=== PATIENT | female | born 1980 | race Two or more races ===

== ENCOUNTER → 2018-06-20 | Outpatient (CLI) | payer OTHER ==
[~2018-06-20] MED LIST: PNV91TAB3 PO
[2018-06-20 09:47] LABS: BASOPHILS # (AUTO) 0.04 x10^3/uL (0-0.1); BASOPHILS % (AUTO) 1 % (0-1); EOSINOPHILS # (AUTO) 0.17 x10^3/uL (0-0.4); EOSINOPHILS % (AUTO) 2 % (1-7); LYMPHOCYTES # (AUTO) 2.27 x10^3/uL (1-3.4); LYMPHOCYTES % (AUTO) 31 % (22-44); MD NO; MEAN CORPUSCULAR HEMOGLOBIN 30.4 pg (27.0-34.8); MEAN CORPUSCULAR HGB CONC 33.7 g/dL (32.4-35.8); MEAN CORPUSCULAR VOLUME 90.2 fL (80-100); MEAN PLATELET VOLUME 8.6 fL (7.4-10.4); MONOCYTES % (AUTO) 4 % (2-9); NEUTROPHILS # (AUTO) 4.62 x10^3/uL (1.8-6.8); NEUTROPHILS % (AUTO) 62 % (42-75); PLATELET COUNT 317 x10^3/uL (130-400); RED BLOOD COUNT 4.59 x10^6/uL (3.82-5.3); RED CELL DISTRIBUTION WIDTH 13.5 % (9.6-15.2)
[2018-06-20 10:05] LABS: ALANINE AMINOTRANSFERASE 19 U/L (12-78); ALBUMIN 3.9 g/dL (3.4-5.0); ANION GAP 8 mmol/L (5-15); CALCIUM 8.3 mg/dL (8.5-10.1); CHLORIDE 108 mmol/L (98-107); CHOLESTEROL, TOTAL 158 mg/dL (140-239); CREATININE 0.61 mg/dL (0.55-1.02)
[2018-06-20 10:07] LABS: ALKALINE PHOSPHATASE 84 U/L (45-117); BILIRUBIN,TOTAL 0.9 mg/dL (0.2-1.0); HDL CHOL % 25 % (28-40); HDL CHOLESTEROL (DIRECT) 40 mg/dL (40-60); LDL CHOLESTEROL,CALCULATED 98 mg/dL (54-169); LDL/HDL RATIO 2.5 (0.5-3.0); TOTAL PROTEIN 7.8 g/dL (6.4-8.2); TRIGLYCERIDES 101 mg/dL (50-200); VLDL CHOLESTEROL 20 mg/dL (0-25)
[2018-06-20 10:46] LABS: HEMOGLOBIN A1C 5.3 % (4.2-6.3)
== END | disposition home or self-care (01) ==
LOC: LAB 09:32
PROVIDERS: ATTEND Obstetrics & Gynecology Maternal & Fetal Medicine
DX: Z13.220 Encounter for screening for lipoid disorders (principal); Z13.89 Encounter for screening for other disorder; Z13.0 Encounter for screening for diseases of the blood and blood-forming organs and certain disorders involving the immune mechanism; Z13.9 Encounter for screening, unspecified; Z13.1 Encounter for screening for diabetes mellitus
CPT/HCPCS: 36415; 80053; 80061; 83036; 85025

== ENCOUNTER 2019-04-17 10:18 | Inpatient (IN) | payer OTHER ==
[~2019-04-17] VITALS: Ht 165.1 cm; Wt 84.0 kg
--- NOTE | 2019-04-17 10:41 | NUR ---
P TTO ED FOR RIGHT SIDED ABD PAIN X3-4 DAYS. PT ALSO STATES CONSTIPATION. LBM YESTEDAY MONING, BUT PT STATES "IT WAS A STRUGGLE." PT CONNECTED TO MONITORS. VSS ON RA. NO NEEDS EXPRESSED. AWAITING EDMD ASSESSMENT.
--- NOTE | 2019-04-17 11:02 | NUR ---
pt up self to rr for ua sample. after pt back in room, this rn noticed urine is [id number]. pt then began to elaborate on right-sided flank pain x2 days. physical assessment updated. vss. no needs expressed.
--- NOTE | 2019-04-17 11:09 | NUR ---
Dr. Bynum to bs for assessment. orders received.
[2019-04-17 11:22] LABS: BASOPHILS # (AUTO) 0.04 x10^3/uL (0-0.1); BASOPHILS % (AUTO) 0 % (0-1); EOSINOPHILS # (AUTO) 0.01 x10^3/uL (0-0.4); EOSINOPHILS % (AUTO) 0 % (1-7); LYMPHOCYTES # (AUTO) 1.14 x10^3/uL (1-3.4); LYMPHOCYTES % (AUTO) 7 % (22-44); MD NO; MEAN CORPUSCULAR HEMOGLOBIN 30.4 pg (27.0-34.8); MEAN CORPUSCULAR HGB CONC 33.5 g/dL (32.4-35.8); MEAN CORPUSCULAR VOLUME 90.7 fL (80-100); MEAN PLATELET VOLUME 8.4 fL (7.4-10.4); MONOCYTES # (AUTO) 0.55 x10^3/uL (0.2-0.8); MONOCYTES % (AUTO) 4 % (2-9); NEUTROPHILS # (AUTO) 13.88 x10^3/uL (1.8-6.8); NEUTROPHILS % (AUTO) 89 % (42-75); PLATELET COUNT 436 x10^3/uL (130-400); RED BLOOD COUNT 3.93 x10^6/uL (3.82-5.3)
--- NOTE | 2019-04-17 11:31 | NUR ---
PT RESTING IN ROOM. WARM BLANKET PROVIDED FOR COMFORT. VSS. AWAITING RESULTS.
[2019-04-17 11:33] LABS: ALANINE AMINOTRANSFERASE 79 U/L (12-78); ANION GAP 10 mmol/L (5-15); CALCIUM 8.5 mg/dL (8.5-10.1); CHLORIDE 101 mmol/L (98-107); CREATININE 0.79 mg/dL (0.55-1.02)
[2019-04-17 11:35] LABS: MICROSCOPIC INDICATED
[2019-04-17 11:38] LABS: ALKALINE PHOSPHATASE 370 U/L (45-117); BILIRUBIN,TOTAL 2.9 mg/dL (0.2-1.0); TOTAL PROTEIN 8.3 g/dL (6.4-8.2)
[2019-04-17 11:41] LABS: CULTURE INDICATED? YES
--- NOTE | 2019-04-17 12:01 | NUR ---
PT RESTING IN ROOM. VSS. AWAITING CT.
--- NOTE | 2019-04-17 12:46 | NUR ---
pt back from ct at this time. pt tolerated well. vss. awaiting results.
--- NOTE | 2019-04-17 12:56 | NUR ---
pt resting in room wtih eyes closed. vss. no needs expressed. awaiting ct results.
[2019-04-17] MEDS ORDERED: SODIUM CHLORIDE 0.9% 1,000ML IVBOLUS ONE (13:30)
[2019-04-17] MEDS ORDERED: CIPROFLOXACIN/PMX 400MG/200ML 100 ML IVPB ONE (13:30)
[2019-04-17] MEDS ORDERED: SODIUM CHLORIDE FLUSH 10ML SYR IVF ONE (13:30)
[2019-04-17] MEDS ORDERED: METRONIDAZOLE PMX 500MG/100ML 100 ML IVPB ONE (13:30)
[2019-04-17] MEDS ORDERED: METRONIDAZOLE PMX 500MG/100ML 100 ML ONE (13:36)
[2019-04-17] MEDS ORDERED: CIPROFLOXACIN/PMX 400MG/200ML 200 ML ONE (13:37)
[2019-04-17] MEDS ORDERED: ONDANSETRON 2MG/ML, 2ML IVPush PRN ×2 (14:00→20:00)
[2019-04-17] MEDS ORDERED: SODIUM CHLORIDE 0.9% 1,000 ML IV ONE (14:00)
[2019-04-17] MEDS ORDERED: MORPHINE SULFATE 4 MG/ML, 1ML IVPush PRN ×2 (14:00→20:00)
[2019-04-17] MEDS ORDERED: SODIUM CHLORIDE FLUSH 10ML SYR IVF PRN (14:00)
[2019-04-17 15:47] VITALS: BP 95/60
[2019-04-17] MEDS ORDERED: BUPIVACAINE/PF 0.5% ONE (17:11)
[2019-04-17] MEDS ORDERED: MIDAZOLAM 1 MG/ML, 2ML ONE (17:16)
[2019-04-17] MEDS ORDERED: FENTANYL PF 100 MCG/2ML ONE ×4 (17:16→19:15)
[2019-04-17] MEDS ORDERED: ROCURONIUM 10 MG/ML,10ML ONE (17:38)
[2019-04-17] MEDS ORDERED: LABETALOL 5MG/ML, 20ML IV PRN ×2 (18:00)
[2019-04-17] MEDS ORDERED: HYDROmorphone 2 MG/ML, 1ML IVPush PRN ×2 (18:00)
[2019-04-17] MEDS ORDERED: hydrALAzine 20 MG/ML, 1ML IV PRN ×2 (18:00)
[2019-04-17] MEDS ORDERED: PROMETHAZINE 25 MG/ML, 1ML IV PRN ×2 (18:00)
[2019-04-17] MEDS ORDERED: FENTANYL PF 100 MCG/2ML IV PRN (18:00)
[2019-04-17] MEDS ORDERED: ALBUTEROL SULFATE 2.5 MG/3 ML NPPB PRN ×2 (18:00)
[2019-04-17] MEDS ORDERED: MEPERIDINE/PF 25MG/0.5ML IVPush PRN ×2 (18:00)
[2019-04-17] MEDS ORDERED: KETOROLAC 30 MG/1 ML IV PRN ×2 (18:00)
[2019-04-17] MEDS ORDERED: DIAZEPAM 5 MG/ML, 2ML IVPush PRN ×2 (18:00)
[2019-04-17] MEDS ORDERED: ACETAMINOPHEN 325 MG TABLET PO PRN ×2 (18:00)
[2019-04-17] MEDS ORDERED: OXYcodone 5 MG/5 ML ORAL.SOL UDC PO PRN ×2 (18:00)
[2019-04-17] MEDS ORDERED: PROPOFOL 10 MG/ML, 20ML ONE (18:37)
[2019-04-17] MEDS ORDERED: CEFAZOLIN 1,000 MG ONE (18:37)
[2019-04-17] MEDS ORDERED: SUCCINYLCHOLINE 20 MG/ML, 10ML ONE (18:37)
[2019-04-17] MEDS ORDERED: ONDANSETRON 2MG/ML, 2ML ONE (18:37)
[2019-04-17] MEDS ORDERED: DEXAMETHASONE 4 MG/ML, 1ML ONE (18:37)
[2019-04-17] MEDS ORDERED: NEOSTIGMINE 1 MG/ML, 10ML ONE (18:37)
[2019-04-17] MEDS ORDERED: OXYcodone 5 MG/5 ML ORAL.SOL UDC ONE (19:15)
[2019-04-17] MEDS ORDERED: D5%-0.45NACL+KCL 20MEQ 1,000 ML IV SCH (19:31)
[2019-04-17] MEDS: FENTANYL PF 100 MCG/2ML IV PRN ×2 (19:37→19:54)
[2019-04-17] MEDS ORDERED: OXYcodone IR 5MG TABLET PO PRN (20:00)
[2019-04-17] MEDS ORDERED: DEXAMETHASONE 4 MG/ML, 1ML IVPush PRN (20:00)
[2019-04-17] MEDS ORDERED: LORazepam 2 MG/ML, 1ML IVPush PRN (20:00)
[2019-04-17] MEDS ORDERED: DIPHENHYDRAMINE 25 MG CAPSULE PO PRN (20:00)
[2019-04-17] MEDS ORDERED: HALOPERIDOL 5 MG/ML IVPush PRN (20:00)
[2019-04-17] MEDS ORDERED: DIPHENHYDRAMINE 50 MG/ML, 1ML IVPush PRN (20:00)
[2019-04-17] MEDS ORDERED: CALCIUM CARBONATE 500 MG TAB.CHEW PO PRN (20:00)
[2019-04-17] MEDS ORDERED: SCOPOLAMINE PATCH, 1.5MG PATCH.TD72 TD PRN (20:00)
[2019-04-17] MEDS ORDERED: CEFTRIAXONE 2 GM in SODIUM CHLORIDE 0.9% 50 ML IVPB SCH (20:00)
[2019-04-17] MEDS ORDERED: TRAZODONE 50MG TABLET PO PRN (20:00)
[2019-04-17] MEDS: ACETAMINOPHEN 500 MG TABLET PO SCH (21:12)
[2019-04-17] MEDS: KETOROLAC 30 MG/1 ML IVPush SCH (21:13)
[2019-04-17] MEDS: METRONIDAZOLE PMX 500MG/100ML 100 ML IVPB SCH (22:39)
[2019-04-17 23:27] VITALS: BP 92/56
[2019-04-18] MEDS: ACETAMINOPHEN 500 MG TABLET PO SCH ×4 (02:47→20:27)
[2019-04-18] MEDS: KETOROLAC 30 MG/1 ML IVPush SCH ×4 (02:47→20:27)
[2019-04-18 03:26] VITALS: BP 98/57
[2019-04-18 03:44] LABS: BASOPHILS # (AUTO) 0.01 x10^3/uL (0-0.1); BASOPHILS % (AUTO) 0 % (0-1); EOSINOPHILS % (AUTO) 0 % (1-7); LYMPHOCYTES # (AUTO) 0.41 x10^3/uL (1-3.4); LYMPHOCYTES % (AUTO) 3 % (22-44); MD NO; MEAN CORPUSCULAR HEMOGLOBIN 30.4 pg (27.0-34.8); MEAN CORPUSCULAR HGB CONC 33.1 g/dL (32.4-35.8); MEAN PLATELET VOLUME 8.4 fL (7.4-10.4); MONOCYTES # (AUTO) 0.28 x10^3/uL (0.2-0.8); MONOCYTES % (AUTO) 2 % (2-9); NEUTROPHILS # (AUTO) 11.55 x10^3/uL (1.8-6.8); NEUTROPHILS % (AUTO) 94 % (42-75); PLATELET COUNT 371 x10^3/uL (130-400); RED BLOOD COUNT 3.45 x10^6/uL (3.82-5.3); RED CELL DISTRIBUTION WIDTH 14.3 % (9.6-15.2)
[2019-04-18 03:50] LABS: ALBUMIN 2.2 g/dL (3.4-5.0); ANION GAP 8 mmol/L (5-15); CALCIUM 7.9 mg/dL (8.5-10.1); CHLORIDE 104 mmol/L (98-107); CREATININE 0.66 mg/dL (0.55-1.02)
[2019-04-18] MEDS: METRONIDAZOLE PMX 500MG/100ML 100 ML IVPB SCH ×3 (06:40→22:38)
[2019-04-18 08:02] VITALS: BP 88/53
[2019-04-18] MEDS: ENOXAPARIN 40 MG/0.4 ML SQ SCH (12:33)
[2019-04-18] MEDS ORDERED: PANTOPROZOLE 40MG TABLET PO SCH (13:00)
[2019-04-18 14:00] VITALS: BP 96/56
[2019-04-18] MEDS: CEFTRIAXONE PMX 2GM/50ML 50 ML IVPB SCH (17:54)
[2019-04-18 18:42] VITALS: BP 90/63
[2019-04-19 01:48] VITALS: BP 93/60
[2019-04-19] MEDS: ACETAMINOPHEN 500 MG TABLET PO SCH ×4 (02:33→20:15)
[2019-04-19] MEDS: KETOROLAC 30 MG/1 ML IVPush SCH ×4 (02:34→20:17)
[2019-04-19 03:48] LABS: ALBUMIN 2.1 g/dL (3.4-5.0); ANION GAP 8 mmol/L (5-15); CALCIUM 8.1 mg/dL (8.5-10.1); CHLORIDE 103 mmol/L (98-107); CREATININE 0.64 mg/dL (0.55-1.02)
[2019-04-19 03:56] LABS: BASOPHILS # (AUTO) 0.02 x10^3/uL (0-0.1); BASOPHILS % (AUTO) 0 % (0-1); EOSINOPHILS # (AUTO) 0.05 x10^3/uL (0-0.4); EOSINOPHILS % (AUTO) 0 % (1-7); LYMPHOCYTES # (AUTO) 0.81 x10^3/uL (1-3.4); LYMPHOCYTES % (AUTO) 5 % (22-44); MD MORPH REVIEW ONLY; MEAN CORPUSCULAR HEMOGLOBIN 30.3 pg (27.0-34.8); MEAN CORPUSCULAR VOLUME 91.9 fL (80-100); MEAN PLATELET VOLUME 8.5 fL (7.4-10.4); MONOCYTES # (AUTO) 0.06 x10^3/uL (0.2-0.8); MONOCYTES % (AUTO) 0 % (2-9); NEUTROPHILS # (AUTO) 14.26 x10^3/uL (1.8-6.8); NEUTROPHILS % (AUTO) 94 % (42-75); PLATELET COUNT 349 x10^3/uL (130-400); RED BLOOD COUNT 3.24 x10^6/uL (3.82-5.3); RED CELL DISTRIBUTION WIDTH 14.9 % (9.6-15.2)
[2019-04-19 03:57] LABS: <PLATELET ESTIMATE> ADEQUATE; <PLT MORPHOLOGY> NORMAL PLT MORPH; <RBC MORPHOLOGY> NORMAL; TOXIC GRAN 1+
[2019-04-19] MEDS: METRONIDAZOLE PMX 500MG/100ML 100 ML IVPB SCH ×3 (06:25→22:36)
[2019-04-19 06:47] VITALS: BP 86/51
[2019-04-19 08:28] VITALS: BP 97/61
[2019-04-19] MEDS: ENOXAPARIN 40 MG/0.4 ML SQ SCH (12:05)
[2019-04-19 13:18] VITALS: BP 93/55
[2019-04-19] MEDS: CEFTRIAXONE PMX 2GM/50ML 50 ML IVPB SCH (17:27)
[2019-04-19 19:35] VITALS: BP 106/77
[2019-04-20] MEDS: KETOROLAC 30 MG/1 ML IVPush SCH ×3 (02:28→14:30)
[2019-04-20] MEDS: ACETAMINOPHEN 500 MG TABLET PO SCH ×5 (02:28→20:29)
[2019-04-20 02:57] VITALS: BP 101/68
[2019-04-20 04:10] LABS: BASOPHILS # (AUTO) 0.18 x10^3/uL (0-0.1); BASOPHILS % (AUTO) 1 % (0-1); EOSINOPHILS # (AUTO) 0.07 x10^3/uL (0-0.4); EOSINOPHILS % (AUTO) 0 % (1-7); LYMPHOCYTES # (AUTO) 0.91 x10^3/uL (1-3.4); LYMPHOCYTES % (AUTO) 5 % (22-44); MD NO; MEAN CORPUSCULAR HEMOGLOBIN 30.4 pg (27.0-34.8); MEAN CORPUSCULAR HGB CONC 32.9 g/dL (32.4-35.8); MEAN CORPUSCULAR VOLUME 92.3 fL (80-100); MEAN PLATELET VOLUME 8.3 fL (7.4-10.4); MONOCYTES # (AUTO) 0.17 x10^3/uL (0.2-0.8); MONOCYTES % (AUTO) 1 % (2-9); NEUTROPHILS # (AUTO) 15.62 x10^3/uL (1.8-6.8); NEUTROPHILS % (AUTO) 92 % (42-75); PLATELET COUNT 415 x10^3/uL (130-400); RED BLOOD COUNT 3.09 x10^6/uL (3.82-5.3); RED CELL DISTRIBUTION WIDTH 14.8 % (9.6-15.2)
[2019-04-20 04:14] LABS: ALBUMIN 2.1 g/dL (3.4-5.0); ANION GAP 9 mmol/L (5-15); CHLORIDE 104 mmol/L (98-107); CREATININE 0.53 mg/dL (0.55-1.02)
[2019-04-20] MEDS: METRONIDAZOLE PMX 500MG/100ML 100 ML IVPB SCH ×3 (06:25→23:16)
[2019-04-20 07:08] VITALS: BP 96/57
[2019-04-20] MEDS: ENOXAPARIN 40 MG/0.4 ML SQ SCH (11:59)
[2019-04-20 12:31] VITALS: BP 104/66
[2019-04-20] MEDS: CEFTRIAXONE PMX 2GM/50ML 50 ML IVPB SCH (16:50)
[2019-04-20 19:52] VITALS: BP 98/61
[2019-04-21 02:45] VITALS: BP 102/64
[2019-04-21] MEDS: ACETAMINOPHEN 500 MG TABLET PO SCH ×3 (03:19→15:17)
[2019-04-21 04:54] LABS: BASOPHILS # (AUTO) 0.01 x10^3/uL (0-0.1); BASOPHILS % (AUTO) 0 % (0-1); EOSINOPHILS # (AUTO) 0.22 x10^3/uL (0-0.4); EOSINOPHILS % (AUTO) 2 % (1-7); LYMPHOCYTES # (AUTO) 1.03 x10^3/uL (1-3.4); LYMPHOCYTES % (AUTO) 7 % (22-44); MD NO; MEAN CORPUSCULAR HEMOGLOBIN 30.2 pg (27.0-34.8); MEAN CORPUSCULAR HGB CONC 33.2 g/dL (32.4-35.8); MEAN PLATELET VOLUME 7.8 fL (7.4-10.4); MONOCYTES # (AUTO) 0.42 x10^3/uL (0.2-0.8); MONOCYTES % (AUTO) 3 % (2-9); NEUTROPHILS # (AUTO) 12.37 x10^3/uL (1.8-6.8); NEUTROPHILS % (AUTO) 88 % (42-75); PLATELET COUNT 476 x10^3/uL (130-400); RED CELL DISTRIBUTION WIDTH 14.9 % (9.6-15.2)
[2019-04-21 05:05] LABS: ANION GAP 10 mmol/L (5-15); CHLORIDE 104 mmol/L (98-107)
[2019-04-21 05:06] LABS: CREATININE 0.48 mg/dL (0.55-1.02)
[2019-04-21] MEDS: METRONIDAZOLE PMX 500MG/100ML 100 ML IVPB SCH ×2 (06:33→15:16)
[2019-04-21 08:06] VITALS: BP 115/75
[2019-04-21] MEDS: ENOXAPARIN 40 MG/0.4 ML SQ SCH (11:43)
[2019-04-21 12:44] VITALS: BP 95/63
[2019-04-21] MEDS: CEFTRIAXONE PMX 2GM/50ML 50 ML IVPB SCH (17:15)
[2019-04-21] MEDS ORDERED: OXYC-302 PO (17:58)
[2019-04-21] MEDS ORDERED: AMOX1TAB64 PO (17:58)
== END 2019-04-21 18:55 | disposition home or self-care (01) | DRG 331 ==
LOC: ED 13:01 → EDIP 13:36 → 4NOR 15:40
PROVIDERS: ADMIT Surgery; ATTEND Surgery
PROC: 0DB80ZZ Excision of Small Intestine, Open Approach (ICD-10-PCS; 2019-04-17)
PROC: 0DJD4ZZ Inspection of Lower Intestinal Tract, Percutaneous Endoscopic Approach (ICD-10-PCS; 2019-04-17)
PROC: 0DTF0ZZ Resection of Right Large Intestine, Open Approach (ICD-10-PCS; principal; 2019-04-17 17:00)
DX: K35.32 Acute appendicitis with perforation, localized peritonitis, and gangrene, without abscess (principal); Z83.3 Family history of diabetes mellitus; Z53.31 Laparoscopic surgical procedure converted to open procedure
CPT/HCPCS: 36415; 74018; 99285; S0020; 74176; 80048; 80053; 81001; 82040; 83690; 84703; 85025; 87086; 88307; 96365; 96375; G0378; J0690; J0696; J0744; J1100; J1650; J1885; J2250; J2405; J2704; J2710; J3010; J0330; J1200; J3480; J7030

== ENCOUNTER → 2020-09-02 | Outpatient (CLI) | payer OTHER ==
[~2020-09-02] MED LIST changes: +AMOX1TAB64 PO; +OXYC-302 PO
[2020-09-02 08:42] LABS: BASOPHILS % (AUTO) 1 % (0-1); EOSINOPHILS % (AUTO) 3 % (1-7); LYMPHOCYTES % (AUTO) 32 % (22-44); MEAN CORPUSCULAR HEMOGLOBIN 30.9 pg (27.0-34.8); MEAN CORPUSCULAR HGB CONC 34.3 g/dL (32.4-35.8); MEAN PLATELET VOLUME 8.8 fL (7.4-10.4); MONOCYTES % (AUTO) 5 % (2-9); NEUTROPHILS % (AUTO) 59 % (42-75); PLATELET COUNT 350 x10^3/uL (130-400); RED BLOOD COUNT 4.55 x10^6/uL (3.82-5.3); RED CELL DISTRIBUTION WIDTH 13.8 % (9.6-15.2)
[2020-09-02 08:43] LABS: ALANINE AMINOTRANSFERASE 82 U/L (12-78); ALBUMIN 3.9 g/dL (3.4-5.0); ANION GAP 7 mmol/L (5-15); CALCIUM 9.2 mg/dL (8.5-10.1); CHLORIDE 108 mmol/L (98-107); CHOLESTEROL, TOTAL 165 mg/dL (140-239); CREATININE 0.76 mg/dL (0.55-1.02)
[2020-09-02 08:46] LABS: ALKALINE PHOSPHATASE 78 U/L (45-117); BILIRUBIN,TOTAL 0.9 mg/dL (0.2-1.0); HDL CHOL % 20 % (28-40); HDL CHOLESTEROL (DIRECT) 33 mg/dL (40-60); LDL CHOLESTEROL,CALCULATED 75 mg/dL (54-169); LDL/HDL RATIO 2.3 (0.5-3.0); TOTAL PROTEIN 8.1 g/dL (6.4-8.2); TRIGLYCERIDES 287 mg/dL (50-200); VLDL CHOLESTEROL 57 mg/dL (0-25)
[2020-09-02 08:56] LABS: MD NO
== END | disposition home or self-care (01) ==
LOC: LAB 08:17
PROVIDERS: ATTEND Obstetrics & Gynecology Maternal & Fetal Medicine
DX: Z01.419 Encounter for gynecological examination (general) (routine) without abnormal findings (principal); Z13.9 Encounter for screening, unspecified
CPT/HCPCS: 36415; 80053; 80061; 83036; 85025

== ENCOUNTER → 2020-12-09 | Outpatient (CLI) | payer OTHER ==
[~2020-12-09] MED LIST changes: -OXYC-302 PO; +OXYC1TAB14 PO
[2020-12-09 09:34] LABS: ALANINE AMINOTRANSFERASE 55 U/L (12-78); ALBUMIN 3.9 g/dL (3.4-5.0); ANION GAP 6 mmol/L (5-15); CHLORIDE 109 mmol/L (98-107)
[2020-12-09 09:37] LABS: ALKALINE PHOSPHATASE 73 U/L (45-117); BILIRUBIN,TOTAL 0.7 mg/dL (0.2-1.0); CREATININE 0.75 mg/dL (0.55-1.02); TOTAL PROTEIN 7.8 g/dL (6.4-8.2)
== END | disposition home or self-care (01) ==
LOC: LAB 09:11
PROVIDERS: ATTEND Obstetrics & Gynecology Maternal & Fetal Medicine
DX: R94.5 Abnormal results of liver function studies (principal)
CPT/HCPCS: 36415; 80053

== ENCOUNTER → 2020-12-18 | Outpatient (CLI) | payer OTHER | END | disposition home or self-care (01) | LOC: STAR 14:33 | PROVIDERS: ATTEND Surgery | DX: Z20.822 Contact with and (suspected) exposure to COVID-19 (principal); K43.2 Incisional hernia without obstruction or gangrene | CPT/HCPCS: U0003 ==

== ENCOUNTER 2020-12-24 07:18 | Day surgery (SDC) | payer OTHER ==
[~2020-12-24] VITALS: Ht 162.6 cm; Wt 83.0 kg
[2020-12-24 08:04] VITALS: BP 114/74
[2020-12-24] MEDS ORDERED: CHLORHEXIDINE 15 ML UDC ONE (08:10)
[2020-12-24 08:12] LABS: HCG UR SG 1.015 (1.003-1.030)
[2020-12-24] MEDS ORDERED: CHLORHEXIDINE 15 ML UDC PO ONE (08:30)
[2020-12-24] MEDS ORDERED: LACTATED RINGERS 1,000 ML IV SCH (09:00)
[2020-12-24] MEDS ORDERED: FENTANYL PF 250 MCG/5ML ONE (10:03)
[2020-12-24] MEDS ORDERED: MIDAZOLAM 1 MG/ML, 2ML ONE (10:03)
[2020-12-24] MEDS ORDERED: ROCURONIUM 10 MG/ML,10ML ONE (10:04)
[2020-12-24] MEDS ORDERED: PROPOFOL 10 MG/ML, 20ML ONE (10:04)
[2020-12-24] MEDS ORDERED: DEXAMETHASONE 4 MG/ML, 1ML ONE (10:04)
[2020-12-24] MEDS ORDERED: CEFAZOLIN 1,000 MG ONE (10:04)
[2020-12-24] MEDS ORDERED: ONDANSETRON 2MG/ML, 2ML ONE (10:04)
[2020-12-24] MEDS ORDERED: OXYC5TAB2 PO (11:41)
[2020-12-24] MEDS ORDERED: FENTANYL PF 100 MCG/2ML ONE (11:49)
[2020-12-24] MEDS ORDERED: OXYcodone 5 MG/5 ML ORAL.SOL UDC ONE (11:49)
[2020-12-24] MEDS ORDERED: HYDROmorphone 1 MG/ML, 1ML INJ ONE (11:49)
[2020-12-24] MEDS: FENTANYL PF 100 MCG/2ML IV PRN ×2 (11:52→11:59)
[2020-12-24] MEDS ORDERED: PROMETHAZINE 25 MG/ML, 1ML IVPush PRN (12:00)
[2020-12-24] MEDS ORDERED: PROMETHAZINE 25 MG SUPP PR PRN (12:00)
[2020-12-24] MEDS ORDERED: ACETAMINOPHEN 325 MG TABLET PO PRN (12:00)
[2020-12-24] MEDS ORDERED: LORazepam 2 MG/ML, 1ML IVPush PRN (12:00)
[2020-12-24] MEDS ORDERED: OXYcodone 5 MG/5 ML ORAL.SOL UDC PO PRN ×2 (12:00)
[2020-12-24] MEDS ORDERED: MEPERIDINE/PF 25MG/0.5ML IVPush PRN (12:00)
[2020-12-24] MEDS ORDERED: ONDANSETRON 2MG/ML, 2ML IVPush PRN (12:00)
[2020-12-24] MEDS: HYDROmorphone 1 MG/ML, 1ML INJ IVPush PRN ×2 (12:05→12:11)
[2020-12-24] MEDS ORDERED: METHOCARBAMOL 1,000 MG in DEXTROSE 5% 100 ML IV PRN (13:00)
== END 2020-12-24 16:30 | disposition home or self-care (01) ==
LOC: OUT 07:18
PROVIDERS: ATTEND Surgery
DX: K43.2 Incisional hernia without obstruction or gangrene (principal); Z79.899 Other long term (current) drug therapy
CPT/HCPCS: 49656; 81025; C1781; J0690; J1100; J1170; J2250; J2405; J2704; J2800; J3010; S2900

== ENCOUNTER 2021-03-13 17:08 | Emergency (ER) | payer OTHER ==
[~2021-03-13] VITALS: Ht 162.6 cm; Wt 85.8 kg
[~2021-03-13 17:08] MED LIST changes: +OXYC5TAB2 PO
[2021-03-13 20:28] VITALS: BP 125/85
[2021-03-13] MEDS ORDERED: DIAZEPAM 5 MG TABLET PO ONE (21:00)
[2021-03-13] MEDS ORDERED: KETOROLAC 30 MG/1 ML IM ONE (21:00)
[2021-03-13] MEDS ORDERED: DIAZEPAM 5 MG TABLET ONE (21:01)
[2021-03-13] MEDS ORDERED: KETOROLAC 30 MG/1 ML ONE (21:01)
== END 2021-03-13 21:37 | disposition home or self-care (01) ==
LOC: ED 20:51
DX: S39.012A Strain of muscle, fascia and tendon of lower back, initial encounter (principal); S16.1XXA Strain of muscle, fascia and tendon at neck level, initial encounter; V59.59XA Passenger in pick-up truck or van injured in collision with other motor vehicles in traffic accident, initial encounter; Y93.89 Activity, other specified; Y92.410 Unspecified street and highway as the place of occurrence of the external cause; Y99.8 Other external cause status
CPT/HCPCS: 96372; 99283; J1885